=== PATIENT | male | born 1940 | race Caucasian/White ===

== ENCOUNTER 2016-12-31 09:13 | Day surgery (SDC) | payer MEDICARE, OTHER ==
[2016-12-31] MEDS ORDERED: Proparacaine 0.5% Ophth Soln 15 ML Bottle EYELF ONE (09:30)
[2016-12-31] MEDS ORDERED: Moxifloxacin 0.5% Ophth Soln 3 ML Bottle EYELF ONE (09:30)
[2016-12-31] MEDS ORDERED: Phenylephrine 10% Ophth Soln 5 ML Bot EYELF ONE (09:30)
[2016-12-31] MEDS ORDERED: Timolol Maleate 0.5% Ophth Soln 5 ML Bottle EYELF ONE (09:30)
[2016-12-31] MEDS ORDERED: Cataract Ophth Solution EYELF ONE (09:30)
[2016-12-31] MEDS ORDERED: Acetaminophen/Codeine 300-30 MG Tab PO PRN (09:30)
[2016-12-31] MEDS ORDERED: Phenylephrine 10% Ophth Soln 5 ML Bot EYELF PRN (09:30)
[2016-12-31] MEDS ORDERED: Ondansetron 4 MG/2 ML SDV IVPUSH PRN (09:30)
[2016-12-31] MEDS ORDERED: Sodium Chloride 0.9% 10 ML Syringe FLUSH PRN (09:30)
[2016-12-31] MEDS ORDERED: Povidone-Iodine 5% Sterile Ophth Soln 30 ML Bottle EYELF ONE ×2 (09:30→10:35)
[2016-12-31] MEDS ORDERED: Acetaminophen 325 MG Tab PO PRN (09:30)
--- NOTE | 2016-12-31 10:04 | PCM.SN ---
- Free Text/Narrative Note: Preop. Meds and allergies reviewed w chart review. No complications w previous anesthetics. NPO > 8 hrs. Non smoker. Mallampati 3. lungs CTAB, heart RRR normal sounds. Risks benefits and alternatives of anesthesia explained to Pt. Pt denies questions or concerns. Plan MAC
[2016-12-31] MEDS ORDERED: Acetylcholine 20 MG/2 ML Intraocular Inj Kit EYELF ONE (10:33)
[2016-12-31] MEDS ORDERED: Lidocaine 1% 30 ML SDV ONE (10:34)
[2016-12-31] MEDS ORDERED: Chondroitin Sulfate/Hyaluronate Sodium Ophth Inj 0.5 ML Syringe IOCULAR ONE (10:34)
[2016-12-31] MEDS ORDERED: Vancomycin 500 MG SDV EYELF ONE (10:34)
[2016-12-31] MEDS ORDERED: Chondroitin Sulfate/Hyaluronate Sodium Ophth Inj 0.75 ML Syringe EYELF ONE (10:34)
[2016-12-31] MEDS ORDERED: Balanced Salt Solution Ophth Irrig 500 ML Bottle IOCULAR ONE (10:34)
[2016-12-31] MEDS ORDERED: Dexamethasone/Neomycin/Polymyxin B Ophth Oint 3.5 GM Tube EYELF ONE (10:35)
[2016-12-31] MEDS ORDERED: Tetracaine 0.5% 2 ML Bottle EYELF ONE (10:35)
[2016-12-31] MEDS ORDERED: Diclofenac Sodium 0.1% Ophth Soln 5 ML Bottle EYELF ONE (10:35)
[2016-12-31] MEDS ORDERED: Apraclonidine 0.5% Ophth Soln 5 ML Bot EYELF ONE (10:35)
[2016-12-31] MEDS ORDERED: Dexamethasone 4 MG/ML SDV IOCULAR ONE (10:40)
[2016-12-31 11:45] VITALS: BP 136/65
--- NOTE | 2016-12-31 12:07 | PCM.SN ---
- Free Text/Narrative Note: Post op. Pt discharged home after discharge criteria met. No anesthesia concerns noted.
--- NOTE | 2016-12-31 13:50 | OR ---
DATE: 12/31/2016 PREOPERATIVE DIAGNOSES: 1. Visually significant cataract, left eye. 2. Primary open angle glaucoma, left eye. POSTOPERATIVE DIAGNOSES: 1. Visually significant cataract, left eye. 2. Primary open angle glaucoma, left eye. PROCEDURES: 1. Extracapsular cataract extraction with intraocular lens implant. 2. Placement of iStent for glaucoma control. SURGEON: Fernando Martins MD ANESTHESIA: Local MAC. INDICATION: Mr. Mcfarland was seen in the clinic. He complains of increased difficulty with glare, difficulty with blurred vision. Clinical examination reveals visually significant cataract and mild primary open-angle glaucoma, currently controlled with topical therapy. I explained options, I offered cataract surgery, and explained risks, including, but not limited to, infection, retinal detachment, loss of vision, need for additional surgery, and risks associated with anesthesia. We discussed implant options. He has requested a monofocal implant. I offered cataract surgery with or without the eye stent. He requested the iStent procedure. OPERATIVE DESCRIPTION: The patient was prepped and draped in a sterile fashion and topical anesthesia was applied. Attention was placed on the operative eye. A sterile lid speculum was placed to allow operative exposure. Paracentesis was made temporal. Intracameral lidocaine was administered. Viscoelastic was injected. A full-thickness corneal incision was made using the trapezoidal blade. Bent needle cystotome was then used to make a small jona in the anterior capsule and a 360-degree curvilinear capsulorrhexis was created. Nucleus was then hydrodissected and hydrodelinated using balanced saline solution. Nucleus was then decompressed centrally and rotated and noted to be free of adhesions. Nucleus was then removed using the phacoemulsification handpiece. Additional viscoelastic was then injected into the capsular bag and the intraocular lens was inserted into the capsular bag. The iStent portion of the procedure was then performed. Following removal of the nucleus and cortex, the irrigation and aspiration handpiece was inserted to remove viscoelastic from the posterior surface of the IOL. Additional viscoelastic was then inserted into the anterior chamber angle directly opposite the corneal incision. Miochol was injected into the nasal iris to promote pupillary contraction. The patient's head was then rotated 35 degrees away from the initial position. The operating microscope was also rotated 35 degrees to achieve the proper orientation. The gonioprism was then placed onto the eye. The iStent was then inserted into the anterior chamber with the right hand and the stent was introduced into the pigmented trabecular meshwork. The stent was advanced beneath the trabecular meshwork until approximately two-thirds of the body was covered and then the stent was released from the insertion device. The stent was then tapped into its final resting position using the insertion device. The device was then reinspected to ensure that it was securely in position. The viscoelastic was aspirated from the anterior chamber. Wound and paracentesis sites were hydrated using balanced saline solution. Vancomycin 0.1 mL was injected into the anterior chamber. Intraocular lens was inspected and noted to be clear and well centered. Postoperative drops were placed and a sterile eye patch and shield were placed over the operative eye. The patient was then transported to the postoperative recovery area having tolerated the procedure well. No complications occurred. CC: Fernando Martins MD [facility] /[id number]
[2016-12-31] MEDS ORDERED: Midazolam 1 MG/ML 2 ML SDV IV ONE (14:52)
[2016-12-31] MEDS ORDERED: Dexamethasone 4 MG/ML SDV IV ONE (14:52)
== END 2016-12-31 11:46 | disposition home or self-care (01) ==
LOC: DL.SDS 09:13
PROVIDERS: ATTEND Ophthalmology
DX: H40.1121 Primary open-angle glaucoma, left eye, mild stage (principal); H26.9 Unspecified cataract; Z79.899 Other long term (current) drug therapy; Z79.82 Long term (current) use of aspirin
CPT/HCPCS: 00142; 0191T; 66984; A9270; J1100; J2250; J3370; J7050; C1780; C1783

== ENCOUNTER 2017-01-28 06:21 | Day surgery (SDC) | payer MEDICARE, OTHER ==
[2017-01-28] MEDS ORDERED: Ondansetron 4 MG/2 ML SDV IVPUSH PRN (06:30)
[2017-01-28] MEDS ORDERED: Timolol Maleate 0.5% Ophth Soln 5 ML Bottle EYERT ONE (06:30)
[2017-01-28] MEDS ORDERED: Cataract Ophth Solution EYERT ONE (06:30)
[2017-01-28] MEDS ORDERED: Sodium Chloride 0.9% 10 ML Syringe FLUSH PRN (06:30)
[2017-01-28] MEDS ORDERED: Moxifloxacin 0.5% Ophth Soln 3 ML Bottle EYERT ONE (06:30)
[2017-01-28] MEDS ORDERED: Proparacaine 0.5% Ophth Soln 15 ML Bottle EYERT ONE (06:30)
[2017-01-28] MEDS ORDERED: Acetaminophen 325 MG Tab PO PRN (06:30)
[2017-01-28] MEDS ORDERED: Phenylephrine 10% Ophth Soln 5 ML Bot EYERT PRN (06:30)
[2017-01-28] MEDS ORDERED: Acetaminophen/Codeine 300-30 MG Tab PO PRN (06:30)
[2017-01-28] MEDS ORDERED: Phenylephrine 10% Ophth Soln 5 ML Bot EYERT ONE (06:30)
[2017-01-28] MEDS ORDERED: Povidone-Iodine 5% Sterile Ophth Soln 30 ML Bottle EYERT SCH (07:15)
[2017-01-28] MEDS ORDERED: Dexamethasone 4 MG/ML SDV ONE (07:19)
[2017-01-28] MEDS ORDERED: Midazolam 1 MG/ML 2 ML SDV ONE (07:19)
[2017-01-28] MEDS ORDERED: Lidocaine 1% 30 ML SDV ONE (07:56)
[2017-01-28] MEDS ORDERED: Povidone-Iodine 5% Sterile Ophth Soln 30 ML Bottle EYERT ONE (07:56)
[2017-01-28] MEDS ORDERED: Apraclonidine 0.5% Ophth Soln 5 ML Bot EYERT ONE (07:58)
[2017-01-28] MEDS ORDERED: Diclofenac Sodium 0.1% Ophth Soln 5 ML Bottle EYERT ONE (07:58)
[2017-01-28] MEDS ORDERED: Chondroitin Sulfate/Hyaluronate Sodium Ophth Inj 0.75 ML Syringe EYERT ONE (07:59)
[2017-01-28] MEDS ORDERED: Vancomycin 500 MG SDV EYERT ONE (07:59)
[2017-01-28] MEDS ORDERED: Balanced Salt Solution Ophth Irrig 500 ML Bottle IOCULAR ONE (07:59)
[2017-01-28] MEDS ORDERED: Dexamethasone/Neomycin/Polymyxin B Ophth Oint 3.5 GM Tube EYERT ONE (07:59)
[2017-01-28] MEDS ORDERED: Acetylcholine 20 MG/2 ML Intraocular Inj Kit EYERT ONE (08:00)
[2017-01-28] MEDS ORDERED: Chondroitin Sulfate/Hyaluronate Sodium Ophth Inj 0.5 ML Syringe IOCULAR ONE (08:00)
[2017-01-28] MEDS ORDERED: Dexamethasone 4 MG/ML SDV IOCULAR ONE (08:02)
--- NOTE | 2017-01-28 08:39 | OR ---
DATE: 01/28/2017 PREOPERATIVE DIAGNOSES: 1. Visually significant cataract, right eye. 2. Primary open angle glaucoma, right eye. POSTOPERATIVE DIAGNOSES: 1. Visually significant cataract, right eye. 2. Primary open angle glaucoma, right eye. PROCEDURES: 1. Extracapsular cataract extraction with intraocular lens implant. 2. Placement of iStent for glaucoma control. SURGEON: Fernando Martins MD ANESTHESIA: Local MAC. INDICATION: Mr. Mcfarland was seen in the clinic. He has complained of a progressive decrease in vision. His clinical examination reveals visually significant cataract and mild primary open-angle glaucoma. I explained options to Mr. Mcfarland. I offered cataract surgery and I explained risks preoperatively including, but not limited to, infection, retinal detachment, loss of vision, need for additional surgery, and risks associated with anesthesia. We discussed implant options. He requested a monofocal implant. I offered surgery with or without the iStent, he requested the iStent procedure. OPERATIVE DESCRIPTION: The patient was prepped and draped in a sterile fashion and topical anesthesia was applied. Attention was placed on the operative eye. A sterile lid speculum was placed to allow operative exposure. Paracentesis was made temporal. Intracameral lidocaine was administered. Viscoelastic was injected. A full-thickness corneal incision was made using the trapezoidal blade. Bent needle cystotome was then used to make a small jona in the anterior capsule and a 360-degree curvilinear capsulorrhexis was created. Nucleus was then hydrodissected and hydrodelineated using balanced saline solution. Nucleus was then decompressed centrally and rotated and noted to be free of adhesions. Nucleus was then removed using the phacoemulsification handpiece. Additional viscoelastic was then injected into the capsular bag and the intraocular lens was inserted into the capsular bag. The iStent portion of the procedure was then performed. Following removal of the nucleus and cortex, the irrigation and aspiration handpiece was inserted to remove viscoelastic from the posterior surface of the IOL. Additional viscoelastic was then inserted into the anterior chamber angle directly opposite the corneal incision. Miochol was injected into the nasal iris to promote pupillary contraction. The patient's head was then rotated 35 degrees away from the initial position. The operating microscope was also rotated 35 degrees to achieve the proper orientation. The gonioprism was then placed onto the eye. The iStent was then inserted into the anterior chamber with the right hand and the stent was introduced into the pigmented trabecular meshwork. The stent was advanced beneath the trabecular meshwork until approximately two-thirds of the body was covered and then the stent was released from the insertion device. The stent was then tapped into its final resting position using the insertion device. The device was then reinspected to ensure that it was securely in position. The viscoelastic was aspirated from the anterior chamber. Wound and paracentesis sites were hydrated using balanced saline solution. Vancomycin 0.1 mL was injected into the anterior chamber. Intraocular lens was inspected and noted to be clear and well centered. Postoperative drops were placed and a sterile eye patch and shield were placed over the operative eye. The patient was then transported to the postoperative recovery area having tolerated the procedure well. No complications occurred. [facility] /[id number]
[2017-01-28 09:11] VITALS: BP 130/55
[2017-01-28] MEDS ORDERED: Midazolam 1 MG/ML 2 ML SDV IV ONE (16:37)
[2017-01-28] MEDS ORDERED: Dexamethasone 4 MG/ML SDV IV ONE (16:37)
[2019-01-28] MEDS ORDERED: Povidone-Iodine 5% Sterile Ophth Soln 30 ML Bottle EYERT ONE (06:30)
== END 2017-01-28 09:11 | disposition home or self-care (01) ==
LOC: DL.SDS 06:21
PROVIDERS: ATTEND Ophthalmology
DX: H26.9 Unspecified cataract (principal); H40.1111 Primary open-angle glaucoma, right eye, mild stage; I10 Essential (primary) hypertension; E78.5 Hyperlipidemia, unspecified; Z79.899 Other long term (current) drug therapy
CPT/HCPCS: 00142; 0191T; 66984; A9270; C1780; C1783; J1100; J2250; J3370; J7050